=== PATIENT | male | born 1985 | race Caucasian/White ===

== ENCOUNTER 2016-09-02 02:57 | Emergency (ER) | payer OTHER ==
[~2016-09-02] VITALS: Ht 182.9 cm; Wt 65.9 kg
[2016-09-02 02:57] VITALS: BP 117/71; PULSE 73; RESP 16; O2SAT 100
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
[2016-09-02] MEDS ORDERED: IBUP-1827 PO (04:12)
[2016-09-02 04:39] VITALS: PULSE 74; RESP 16; O2SAT 97
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
== END 2016-09-02 04:39 | disposition home or self-care (01) ==
LOC: EDBD 02:57 → SED 02:57
DX: S02.2XXA Fracture of nasal bones, initial encounter for closed fracture (principal); M54.2 Cervicalgia; R07.81 Pleurodynia; R51 Headache; F15.10 Other stimulant abuse, uncomplicated; F13.10 Sedative, hypnotic or anxiolytic abuse, uncomplicated; Z79.1 Long term (current) use of non-steroidal anti-inflammatories (NSAID); Y04.0XXA Assault by unarmed brawl or fight, initial encounter; Y93.89 Activity, other specified; Y99.8 Other external cause status; Y92.9 Unspecified place or not applicable
CPT/HCPCS: 21310; 70450; 71101; 72125; 96372; 99284; J1885